=== PATIENT | female | born 1960 | race Caucasian/White ===

== ENCOUNTER 2021-02-18 14:27 | Emergency (ER) | payer MEDICAID, OTHER ==
[~2021-02-18] VITALS: Ht 175.3 cm; Wt 104.5 kg
[2021-02-18] MEDS ORDERED: KETOROLAC 30 MG/1 ML ONE (19:10)
[2021-02-18] MEDS ORDERED: DIAZEPAM 5 MG TABLET ONE (19:10)
[2021-02-18 19:25] VITALS: BP 126/89
[2021-02-18] MEDS ORDERED: LIDODERM 5% PATCH TD ONE ×2 (19:28→19:30)
[2021-02-18] MEDS ORDERED: DIAZEPAM 5 MG TABLET PO ONE (19:30)
[2021-02-18] MEDS ORDERED: KETOROLAC 30 MG/1 ML IM ONE (19:30)
== END 2021-02-18 20:42 | disposition home or self-care (01) ==
LOC: ED 14:57
DX: S16.1XXA Strain of muscle, fascia and tendon at neck level, initial encounter (principal); S09.90XA Unspecified injury of head, initial encounter; M51.36 Other intervertebral disc degeneration, lumbar region; M47.812 Spondylosis without myelopathy or radiculopathy, cervical region; I10 Essential (primary) hypertension; V49.49XA Driver injured in collision with other motor vehicles in traffic accident, initial encounter; Y93.89 Activity, other specified; Y92.410 Unspecified street and highway as the place of occurrence of the external cause; Y99.8 Other external cause status
CPT/HCPCS: 70450; 72110; 72125; 96372; 99285; J1885